=== PATIENT | female | born 1950 | race African-American/Black ===

== ENCOUNTER 2016-10-01 13:37 | Inpatient (IN) | payer OTHER ==
[~2016-10-01] VITALS: Ht 182.9 cm; Wt 88.9 kg
[2016-10-01 19:08] LABS: CHLORIDE 108 mEq/L (98-107); INDEX HEMOLYSI 1 (1-3); INDEX ICTERIC 1 (1-4); INDEX LIPEMIC 1 (1-3)
[2016-10-01 19:12] LABS: BASOPHILS % 0.5 % (0.0-2.0); HEMATOCRIT. 37.2 % (36.0-48.0); HEMOGLOBIN. 11.6 g/dL (12.0-16.0); LYMPHOCYTES % 17.1 % (20.0-50.0); MEAN CORPUSCULAR HEMOGLOBIN 25.1 pg (28.0-32.0); MEAN CORPUSCULAR HGB CONC 31.2 g/dL (31.0-37.0); MEAN CORPUSCULAR VOLUME 80.2 fL (81.0-99.0); MEAN PLATELET VOLUME 8.6 fl (7.4-10.4); MONOCYTES % 14.2 % (2.0-8.0); NEUTROPHILS % 68.2 % (40.0-76.0); PLATELET 260 x1000/uL (130-400); RED BLOOD CELL COUNT 4.64 mill/uL (4.2-5.4); RED CELL DISTRIBUTION WIDTH 16.1 % (11.6-14.6); WHITE BLOOD COUNT 8.8 x1000/uL (4.5-11.0)
[2016-10-01 19:16] LABS: CLARITY URINE CLOUDY (CLEAR); COLOR URINE DARK YELLOW (YELLOW); GLUCOSE URINE NEGATIVE (NEGATIVE); KETONES URINE TRACE (NEGATIVE); LEUKOCYTE ESTERASE URINE TRACE (NEGATIVE); NITRITE URINE NEGATIVE (NEGATIVE); OCCULT BLOOD URINE NEGATIVE (NEGATIVE); PH URINE 5.5 (4.5-8.0); PROTEIN URINE 1+ (NEGATIVE); SPECIFIC GRAVITY URINE 1.034 (1.005-1.030)
[2016-10-01 19:16] LABS: ALANINE AMINOTRANSFERASE 25 IU/L (13-61); ALBUMIN 2.4 g/dL (3.4-5.0); ANION GAP 20; CALCIUM 8.8 mg/dL (8.5-10.1); CARBON DIOXIDE 23 mEq/L (21-32); ETHANOL BLOOD < 10 mg/dL; UREA NITROGEN BLOOD 23 mg/dL (7-21); eGFR > 60 mL/min (>60)
[2016-10-01 19:29] LABS: *AMPHETAMINES SCREEN URINE NEGATIVE (NEGATIVE); *BARBITURATES SCREEN URINE NEGATIVE (NEGATIVE); *BENZODIAZEPINES SCREEN URINE NEGATIVE (NEGATIVE); *COCAINE SCREEN URINE NEGATIVE (NEGATIVE); CANNABINOID URINE SCREEN NEGATIVE (NEGATIVE); ECSTASY MDMA SCREEN URINE NEGATIVE (NEGATIVE); METHADONE URINE SCREEN NEGATIVE (NEGATIVE); OPIATES URINE SCREEN NEGATIVE (NEGATIVE); PHENCYCLIDINE URINE SCREEN NEGATIVE (NEGATIVE)
[2016-10-01 19:37] LABS: BACTERIA URINE 1+; RBC URINE 0-2 /hpf (0-2); SQUAMOUS EPITHELIAL CELL URINE 1+ /lpf (RARE/1+); WBC URINE 0-2 /hpf (0-2)
[2016-10-01 19:44] LABS: NT PRO B-TYPE NATRIURETIC PEP 2282 pg/mL (5-125); TROPONIN I < 0.02 ng/mL (0.00-0.04)
[2016-10-01] MEDS: WATER IV SCH (23:40)
[2016-10-01] MEDS: DEXT 5% IV SCH (23:40)
[2016-10-01] MEDS: TRIMETHOPRIM IV SCH (23:40)
[2016-10-01] MEDS: SULFAMETHOXAZOLE IV SCH (23:40)
[2016-10-02] VITALS (12 sets, daily range): BP systolic 114–141; BP diastolic 66–89
[2016-10-02] MEDS ORDERED: DEXT 5%/0.45% NACL KCL 20MEQ/L 1,000 ML IV SCH ×2 (02:30→04:00)
[2016-10-02] MEDS: PIPERACILLIN/TAZ 3.375G PREMIX 50 ML IV SCH ×4 (05:09→23:31)
[2016-10-02 07:16] LABS: BG BASE EXCESS 1.2 mmol/L (-2.0-2.0); BG CARBOXYHEMOGLOBIN 0.6 % (0.5-1.5); BG HCO3 ACT 25.1 mmol/L (22.0-26.0); BG METHEMOGLOBIN 0.2 % (0.0-1.5); BG OXYHEMOGLOBIN 93.2 % (94.0-97.0); BG PCO2 37.4 mmHg (35.0-45.0); BG PH 7.445 (7.350-7.450); BG PO2 74.1 mmHg (75.0-100.0); BG SAMPLE SITE RIGHT RADIAL; BG TOTAL HEMOGLOBIN 12.3 g/dL (12.0-18.0); BG VENT MODE ROOM AIR
[2016-10-02] MEDS: BLOOD SUGAR DIAGNOSTIC STRIP TEST SCH ×4 (07:30→20:51)
[2016-10-02 07:46] LABS: HEMATOCRIT. 33.5 % (36.0-48.0); HEMOGLOBIN. 10.7 g/dL (12.0-16.0); MEAN CORPUSCULAR HEMOGLOBIN 25.6 pg (28.0-32.0); MEAN CORPUSCULAR VOLUME 80.1 fL (81.0-99.0); MEAN PLATELET VOLUME 8.8 fl (7.4-10.4); PLATELET 237 x1000/uL (130-400); RED BLOOD CELL COUNT 4.18 mill/uL (4.2-5.4); RED CELL DISTRIBUTION WIDTH 15.9 % (11.6-14.6); WHITE BLOOD COUNT 7.8 x1000/uL (4.5-11.0)
[2016-10-02 08:00] LABS: ANION GAP 17; CALCIUM 8.3 mg/dL (8.5-10.1); CARBON DIOXIDE 25 mEq/L (21-32); CHLORIDE 106 mEq/L (98-107); INDEX HEMOLYSI 1 (1-3); INDEX ICTERIC 1 (1-4); INDEX LIPEMIC 1 (1-3); UREA NITROGEN BLOOD 23 mg/dL (7-21); eGFR > 60 mL/min (>60)
[2016-10-02] MEDS: INSULIN LISPRO 100 UNITS/ML SUBCUT SCH ×4 (08:00→20:51)
[2016-10-02] MEDS: IPRATROPIUM/ALBUTEROL 0.5-3(2.5)MG/3ML NEB HHN SCH ×4 (08:04→20:20)
[2016-10-02 08:16] LABS: DIFFERENTIAL COMMENT 1
[2016-10-02] MEDS: DEXTROSE 50% WATER 50ML SYRINGE IV PRN ×4 (08:23→21:43)
[2016-10-02] MEDS: HEPARIN 5000 UNITS/ML VIAL SUBCUT SCH ×2 (08:24→21:00)
[2016-10-02] MEDS: TRIMETHOPRIM IV SCH ×2 (09:35→20:09)
[2016-10-02] MEDS: WATER IV SCH ×2 (09:35→20:09)
[2016-10-02] MEDS: DEXT 5% IV SCH ×2 (09:35→20:09)
[2016-10-02] MEDS: SULFAMETHOXAZOLE IV SCH ×2 (09:35→20:09)
[2016-10-02] MEDS ORDERED: METF500T4 PO ×2 (11:42→12:06)
[2016-10-02] MEDS ORDERED: METO-296 PO (12:02)
[2016-10-02] MEDS ORDERED: RALT400T PO (12:02)
[2016-10-02] MEDS ORDERED: ESOMEPRAZOLE (12:02)
[2016-10-02] MEDS ORDERED: ABACAVIR (12:02)
[2016-10-02] MEDS ORDERED: [UNRECOGNIZED DRUG - OTHER] (12:02)
[2016-10-02] MEDS ORDERED: SERT-112 PO (12:02)
[2016-10-02] MEDS ORDERED: LISI10TA5 PO (12:02)
[2016-10-02] MEDS ORDERED: ATOR40TA70 PO ×2 (12:02→12:12)
[2016-10-02] MEDS ORDERED: GLIP5TAB12 PO (12:02)
[2016-10-02] MEDS ORDERED: CLOP75TA33 PO (12:14)
[2016-10-02] MEDS: DEXT 10%/0.45% NACL 1,000 ML IV SCH (12:25)
[2016-10-02] MEDS ORDERED: KCL 20MEQ/100ML PREMIX 100 ML IV SCH (13:00)
[2016-10-02 13:26] LABS: INR 1.3; PARTIAL THROMBOPLASTIN TIME 30.1 sec (24.0-34.0); PROTHROMBIN TIME 13.3 sec
[2016-10-02 15:12] LABS: ANISOCYTOSIS 1+; PLATELET ESTIMATE NORMAL
[2016-10-02] MEDS ORDERED: FOLIC ACID 1 MG, THIAMINE HCL 100 MG, MVI, ADULT NO.1 10 ML in DEXTROSE 5% WATER 1,000 ML IV NR ×4 (23:00)
[2016-10-03] VITALS (12 sets, daily range): BP systolic 109–145; BP diastolic 58–87
[2016-10-03] MEDS: IPRATROPIUM/ALBUTEROL 0.5-3(2.5)MG/3ML NEB HHN SCH ×7 (00:20→23:41)
[2016-10-03] MEDS: DEXTROSE 50% WATER 50ML SYRINGE IV PRN ×4 (03:11→21:22)
[2016-10-03] MEDS: DEXT 5% IV SCH ×3 (03:39→16:49)
[2016-10-03] MEDS: TRIMETHOPRIM IV SCH ×3 (03:39→16:49)
[2016-10-03] MEDS: SULFAMETHOXAZOLE IV SCH ×3 (03:39→16:49)
[2016-10-03] MEDS: WATER IV SCH ×3 (03:39→16:49)
[2016-10-03] MEDS: CEFEPIME 2,000 MG in DEXT 5% WATER 100 ML IV SCH ×2 (06:43→16:08)
[2016-10-03 07:50] LABS: BASOPHILS % 0.7 % (0.0-2.0); EOSINOPHILS % 0.1 % (0.0-5.0); HEMATOCRIT. 30.4 % (36.0-48.0); HEMOGLOBIN. 9.8 g/dL (12.0-16.0); LYMPHOCYTES % 12.1 % (20.0-50.0); MEAN CORPUSCULAR HGB CONC 32.1 g/dL (31.0-37.0); MEAN PLATELET VOLUME 8.7 fl (7.4-10.4); MONOCYTES % 14.7 % (2.0-8.0); NEUTROPHILS % 72.4 % (40.0-76.0); PLATELET 179 x1000/uL (130-400); RED BLOOD CELL COUNT 3.76 mill/uL (4.2-5.4); RED CELL DISTRIBUTION WIDTH 15.8 % (11.6-14.6); WHITE BLOOD COUNT 6.6 x1000/uL (4.5-11.0)
[2016-10-03] MEDS: BLOOD SUGAR DIAGNOSTIC STRIP TEST SCH ×4 (07:54→21:25)
[2016-10-03] MEDS: INSULIN LISPRO 100 UNITS/ML SUBCUT SCH ×4 (08:00→21:00)
[2016-10-03] MEDS: HEPARIN 5000 UNITS/ML VIAL SUBCUT SCH ×2 (08:08→21:26)
[2016-10-03 08:51] LABS: CALCIUM 7.5 mg/dL (8.5-10.1); MAGNESIUM 1.5 mg/dL (1.8-2.4); PHOSPHORUS 3.2 mg/dL (2.5-4.9)
[2016-10-03] MEDS ORDERED: MAGNESIUM 2 G PREMIX 50 ML IV SCH (13:00)
[2016-10-03] MEDS ORDERED: POTASSIUM CHLORIDE INJ 60 MEQ in DEXT 5% WATER 500 ML IV SCH (13:00)
[2016-10-03] MEDS: DEXT 10%/0.45% NACL 1,000 ML IV SCH (14:45)
[2016-10-03 16:46] LABS: AMMONIA 38 uMol/L (<32); INDEX HEMOLYSI 1 (1-3)
[2016-10-04] VITALS (12 sets, daily range): BP systolic 121–167; BP diastolic 75–109
[2016-10-04] MEDS: SULFAMETHOXAZOLE IV SCH ×3 (01:35→17:11)
[2016-10-04] MEDS: TRIMETHOPRIM IV SCH ×3 (01:35→17:11)
[2016-10-04] MEDS: WATER IV SCH ×3 (01:35→17:11)
[2016-10-04] MEDS: DEXT 5% IV SCH ×3 (01:35→17:11)
[2016-10-04] MEDS: DEXT 10%/0.45% NACL 1,000 ML IV SCH ×2 (03:19→17:11)
[2016-10-04] MEDS: IPRATROPIUM/ALBUTEROL 0.5-3(2.5)MG/3ML NEB HHN SCH ×5 (03:20→21:34)
[2016-10-04] MEDS: CEFEPIME 2,000 MG in DEXT 5% WATER 100 ML IV SCH ×2 (05:25→16:04)
[2016-10-04 06:51] LABS: BASOPHILS % 0.5 % (0.0-2.0); EOSINOPHILS % 0.6 % (0.0-5.0); HEMATOCRIT. 28.9 % (36.0-48.0); HEMOGLOBIN. 9.3 g/dL (12.0-16.0); LYMPHOCYTES % 10.5 % (20.0-50.0); MEAN CORPUSCULAR HEMOGLOBIN 26.1 pg (28.0-32.0); MEAN CORPUSCULAR HGB CONC 32.3 g/dL (31.0-37.0); MEAN CORPUSCULAR VOLUME 80.9 fL (81.0-99.0); MEAN PLATELET VOLUME 8.6 fl (7.4-10.4); MONOCYTES % 14.2 % (2.0-8.0); NEUTROPHILS % 74.2 % (40.0-76.0); PLATELET 158 x1000/uL (130-400); RED BLOOD CELL COUNT 3.57 mill/uL (4.2-5.4); RED CELL DISTRIBUTION WIDTH 16.1 % (11.6-14.6); WHITE BLOOD COUNT 5.8 x1000/uL (4.5-11.0)
[2016-10-04 07:35] LABS: ANION GAP 19; CALCIUM 7.8 mg/dL (8.5-10.1); CARBON DIOXIDE 20 mEq/L (21-32); CHLORIDE 102 mEq/L (98-107); INDEX HEMOLYSI 1 (1-3); INDEX ICTERIC 1 (1-4); INDEX LIPEMIC 1 (1-3); MAGNESIUM 1.7 mg/dL (1.8-2.4); PHOSPHORUS 2.7 mg/dL (2.5-4.9); UREA NITROGEN BLOOD 16 mg/dL (7-21); eGFR > 60 mL/min (>60)
[2016-10-04] MEDS: INSULIN LISPRO 100 UNITS/ML SUBCUT SCH ×4 (08:00→21:00)
[2016-10-04] MEDS: BLOOD SUGAR DIAGNOSTIC STRIP TEST SCH ×4 (08:03→21:00)
[2016-10-04 09:06] LABS: ABSOLUTE LYMPHOCYTES 1.9 x10E3/uL (0.7-3.1); ABSOLUTE MONOCYTES 0.8 x10E3/uL (0.1-0.9); ABSOLUTE NEUTROPHILS 5.3 x10E3/uL (1.4-7.0); BASOPHILS 0 % (.); EOSINOPHILS 0 % (.); HEMATOCRIT 37.7 % (34.0-46.6); HEMOGLOBIN 11.6 g/dL (11.1-15.9); IMMATURE GRANULOCYTES 0 % (.); LYMPHOCYTES 23 % (.); MEAN CORPUSCULAR HEMOGLOBIN 25.7 pg (26.6-33.0); MEAN CORPUSCULAR HGB CONC. 30.8 g/dL (31.5-35.7); MEAN CORPUSCULAR VOLUME 83 fL (79-97); MONOCYTES 10 % (.); NEUTROPHILS 67 % (.); PLATELETS 271 x10E3/uL (150-379); RBC 4.52 x10E6/uL (3.77-5.28); RED CELL DISTRIBUTION WIDTH 15.5 % (12.3-15.4)
[2016-10-04] MEDS: HEPARIN 5000 UNITS/ML VIAL SUBCUT SCH ×2 (09:27→21:12)
[2016-10-04] MEDS ORDERED: POTASSIUM CHLORIDE 20MEQ TABLET SR PO NR (13:00)
[2016-10-04] MEDS ORDERED: MORPHINE SULFATE 2 MG/ML CPJ (NOT FOR IM USE) IV PRN (13:15)
[2016-10-04] MEDS ORDERED: MAGNESIUM 1 G PREMIX 100 ML IV NR (14:00)
[2016-10-04] MEDS: TRAMADOL 50MG TABLET PO PRN (21:12)
[2016-10-05] VITALS (9 sets, daily range): BP systolic 143–163; BP diastolic 80–102
[2016-10-05] MEDS: IPRATROPIUM/ALBUTEROL 0.5-3(2.5)MG/3ML NEB HHN SCH ×5 (00:30→15:33)
[2016-10-05] MEDS: DEXT 5% IV SCH (02:11)
[2016-10-05] MEDS: TRIMETHOPRIM IV SCH (02:11)
[2016-10-05] MEDS: WATER IV SCH (02:11)
[2016-10-05] MEDS: SULFAMETHOXAZOLE IV SCH (02:11)
[2016-10-05] MEDS: DEXT 10%/0.45% NACL 1,000 ML IV SCH ×2 (04:04→16:28)
[2016-10-05 04:11] LABS: % CD 3 POS. LYMPHOCYTES 60.2 % (57.5-86.2); % CD 8 POS. LYMPH 42.1 % (12.0-35.5); ABSOLUTE CD 3 1144 /uL (622-2402); ABSOLUTE CD 4 HELPER 361 /uL (359-1519); ABSOLUTE CD 8 SUPPRESSOR 800 /uL (109-897); CD4/CD8 RATIO 0.45 (0.92-3.72)
[2016-10-05] MEDS: CEFEPIME 2,000 MG in DEXT 5% WATER 100 ML IV SCH ×2 (05:03→16:27)
[2016-10-05] MEDS: BLOOD SUGAR DIAGNOSTIC STRIP TEST SCH ×3 (07:30→17:42)
[2016-10-05] MEDS: INSULIN LISPRO 100 UNITS/ML SUBCUT SCH ×3 (08:00→17:42)
[2016-10-05] MEDS: HEPARIN 5000 UNITS/ML VIAL SUBCUT SCH (08:44)
[2016-10-05] MEDS: TRAMADOL 50MG TABLET PO PRN (08:47)
[2016-10-05] MEDS: ABACAVIR SULFATE 300MG TABLET PO SCH ×2 (08:48→16:27)
[2016-10-05] MEDS: RALTEGRAVIR 400MG TABLET PO SCH ×2 (08:48→16:27)
[2016-10-05] MEDS ORDERED: LAMIVUDINE 150MG TABLET PO SCH (09:00)
[2016-10-05] MEDS ORDERED: SULFAMETHOXAZOLE/TRIMETHOPRIM 800/160MG TABLET PO SCH (09:00)
[2016-10-05] MEDS ORDERED: CLONIDINE 0.1MG TABLET PO PRN (16:15)
== END 2016-10-05 17:50 | DRG 637 ==
LOC: ER 17:39 → 5EST 21:07
PROVIDERS: ADMIT Internal Medicine; ATTEND Internal Medicine
DX: E11.649 Type 2 diabetes mellitus with hypoglycemia without coma (principal); G93.40 Encephalopathy, unspecified; B20 Human immunodeficiency virus [HIV] disease; I11.0 Hypertensive heart disease with heart failure; I50.9 Heart failure, unspecified; J44.9 Chronic obstructive pulmonary disease, unspecified; R62.7 Adult failure to thrive; N17.9 Acute kidney failure, unspecified; D64.9 Anemia, unspecified; Z88.8 Allergy status to other drugs, medicaments and biological substances; Z86.73 Personal history of transient ischemic attack (TIA), and cerebral infarction without residual deficits; Z95.810 Presence of automatic (implantable) cardiac defibrillator; Z99.3 Dependence on wheelchair
CPT/HCPCS: 36415; 36600; 70450; 71010; 74000; 80048; 80053; 80305; 81001; 82140; 82375; 82533; 82805; 82962; 83735; 83880; 84100; 84145; 84443; 84484; 85025; 85610; 85730; 86359; 86360; 87040; 87086; 87536; 92610; 93005; 93306; 93970; 94640; 96365; 96375; 97162; 97166; 97530; 99285; G0482; J0692; J1644; J2543; J3411; J3475; J3480; J3490; J7040; J7060; J7070; J7620